=== PATIENT | female | born 1950 | race Caucasian/White ===

== ENCOUNTER → 2023-08-22 09:33 | Outpatient (REF) | payer MEDICARE, OTHER, SELFPAY | LOC: RAD 09:33 | PROVIDERS: ATTENDING PHYSICIAN Internal Medicine Endocrinology, Diabetes & Metabolism; FAMILY PHYSICIAN Internal Medicine; REFERRING PHYSICIAN Internal Medicine Endocrinology, Diabetes & Metabolism | DX: M84.353 Stress fracture, unspecified femur (principal) | CPT/HCPCS: 78315; A9503 ==